=== PATIENT | male | born 2000 | race Caucasian/White ===

== ENCOUNTER 2024-11-15 01:44 | Emergency (ER) | payer BC, SELFPAY ==
[2024-11-15 01:48] VITALS: BP 162/100; PULSE 92; RESP 17; TEMP 36.8; O2SAT 99
--- NOTE | 2024-11-15 04:20 | PC.NURSE ---
bennyp demetri at bedside for assessment.
--- NOTE | 2024-11-15 04:25 | ED_ITS ---
HPI - General Adult General Chief complaint: Skin/Abscess/Foreign Body Stated complaint: skin infection with tx, used tai and now burning Time Seen by Provider: 11/15/24 03:58 History of Present Illness HPI narrative: Patient is a 24-year-old gentleman presents emergency department with chief complaint of burning and irritation in his groin the patient states that he had a yeast infection in his inguinal folds patient reports he was given a mucoid pouring cream by urgent care and that has not gotten better. The patient states he tried to remove the hair from the area BC thought it was causing shaving an used Tai on the area that has subsequently caused it to become more irritated Related Data Allergies Allergy/AdvReac Type Severity Reaction Status Date / Time No Known Allergies Allergy Verified 11/15/24 01:51 Review of Systems Review of Systems: A 10 system review of systems was completed on the patient and is negative except for what is stated in the HPI. Nursing and ancillary documentation was reviewed. [facility] Family History Family History Other Family history of cardiovascular disease Social History Social History Smoking status: Never smoker Alcohol intake: never Exam Narrative: GENERAL: Well-appearing, well-nourished, and in no acute distress. HEAD: Normocephalic, atraumatic. EYES: PERRLA and EOMI. ENT: Nares clear, no rhinorrhea or epistaxis. Mucous membranes moist. NECK: Supple. CHEST: Clear to auscultation. No respiratory distress. HEART: Regular rate and rhythm. No murmur heard. Normal peripheral pulses. ABDOMEN: Soft, nontender, nondistended, normal active bowel sounds. EXTREMITIES: Normal range of motion. No edema. SKIN: Warm, dry, erythema in the inguinal fold NEURO: No focal deficits. Alert and oriented x3. PSYCH: Normal mood and affect. Course Vital Signs Vital signs: Vital Signs Temperature 36.8 C 11/15/24 01:48 Pulse Rate 92 11/15/24 01:48 Respiratory Rate 17 11/15/24 01:48 Blood Pressure 162/100 H 11/15/24 01:48 Pulse Oximetry 99 11/15/24 01:48 Oxygen Delivery Room Air 11/15/24 01:48 Temperature 36.8 C 11/15/24 01:48 Pulse Rate 92 11/15/24 01:48 Respiratory Rate 17 11/15/24 01:48 Blood Pressure 162/100 H 11/15/24 01:48 Pulse Oximetry 99 11/15/24 01:48 Oxygen Delivery Room Air 11/15/24 01:48 Medical Decision Making MDM Narrative Medical decision making narrative: Differential diagnosis includes chemical dermatitis, skin yeast infection Vital Signs Vital Signs: Vital Signs Temperature 36.8 C 11/15/24 01:48 Pulse Rate 92 11/15/24 01:48 Respiratory Rate 17 11/15/24 01:48 Blood Pressure 162/100 H 11/15/24 01:48 Pulse Oximetry 99 11/15/24 01:48 Oxygen Delivery Room Air 11/15/24 01:48 Temperature 36.8 C 11/15/24 01:48 Pulse Rate 92 11/15/24 01:48 Respiratory Rate 17 11/15/24 01:48 Blood Pressure 162/100 H 11/15/24 01:48 Pulse Oximetry 99 11/15/24 01:48 Oxygen Delivery Room Air 11/15/24 01:48 Discharge Plan Discharge Clinical Impression: Chemical dermatitis, Cellulitis, Candidiasis Patient Disposition: Home Condition: Stable Instructions: Antibiotic Form, Cellulitis (ED), Skin Yeast Infection (ED), Derm atitis (ED) Patient Language: [place]ian Prescriptions: New nystatin 100,000 unit/gram cream 1 applic topical BID Qty: 30 0RF cephalexin 500 mg capsule 500 mg PO QID 7 Days Qty: 28 0RF Follow-up/Referrals: PHYSICIAN NOT ON STAFF,NONSTAFF [Non-Staff] - Time of Disposition: 04:29
[2024-11-15 04:44] VITALS: BP 137/83; PULSE 86; RESP 16; TEMP 36.4; O2SAT 98
== END 2024-11-15 04:46 | disposition home or self-care (01) ==
PROVIDERS: Emergency Provider Emergency Medicine; PCP Nurse Practitioner
DX: L25.3 Unspecified contact dermatitis due to other chemical products (principal); L03.314 Cellulitis of groin; B37.2 Candidiasis of skin and nail
CPT/HCPCS: 99283